=== PATIENT | male | born 1985 | race Caucasian/White ===

== ENCOUNTER 2017-02-22 17:12 | Emergency (ER) | payer OTHER ==
[~2017-02-22] VITALS: Ht 167.6 cm; Wt 100.7 kg
[2017-02-22] MEDS ORDERED: IBUPROFEN 800800 M1 PO (18:30)
[2017-02-22] MEDS ORDERED: HYDROCODONE-AP1 EAC6 PO (18:30)
[2017-02-22 19:02] VITALS: BP 129/86
== END 2017-02-22 19:04 | disposition home or self-care (01) ==
LOC: ER 17:12
DX: S92.351A Displaced fracture of fifth metatarsal bone, right foot, initial encounter for closed fracture (principal); W22.01XA Walked into wall, initial encounter; Y93.89 Activity, other specified; Y92.89 Other specified places as the place of occurrence of the external cause; Y99.8 Other external cause status

== ENCOUNTER 2017-09-13 15:53 | Emergency (ER) | payer OTHER ==
[~2017-09-13] VITALS: Ht 177.8 cm; Wt 84.8 kg
[~2017-09-13 15:53] MED LIST: HYDROCODONE-AP1 EAC6 PO; IBUPROFEN 800800 M1 PO
[2017-09-13] MEDS ORDERED: PREDNISONE 20 M20 MG PO (17:39)
[2017-09-13] MEDS ORDERED: VENTOLIN HFA 1818 GM INH (17:39)
[2017-09-13] MEDS ORDERED: TESSALON PERLE100 MG PO (17:39)
[2017-12-04] MEDS ORDERED: PROVENTIL HFA6.7 G1 INH (10:10)
[2017-12-04] MEDS ORDERED: TESSALON PERLE100 MG PO (10:10)
== END 2017-09-13 17:49 | disposition home or self-care (01) ==
LOC: ER 15:53
DX: J40 Bronchitis, not specified as acute or chronic (principal); R21 Rash and other nonspecific skin eruption; B34.9 Viral infection, unspecified; F17.210 Nicotine dependence, cigarettes, uncomplicated; Z87.442 Personal history of urinary calculi; Z88.8 Allergy status to other drugs, medicaments and biological substances